=== PATIENT | male | born 1990 | race Caucasian/White ===

== ENCOUNTER 2021-05-09 18:32 | Emergency (ER) | payer OTHER ==
[2021-05-09 20:26] LABS: BASOPHIL 0.7 % (0-2); EOSINOPHIL 0.6 % (0-5); HCT 41.9 % (42.0-52.0); HGB 14.6 g/dl (13.2-18.0); LYMPHOCYTE 7.5 % (15-48); MCH 30.2 pg (25.0-31.0); MCHC 34.8 g/dL (32.0-36.0); MCV 86.7 fL (78.0-100.0); MPV 11.2 fL (6.0-9.5); NEUTROPHIL 85.8 % (41-80); NRBC 0; PLT 182 K/uL (150-400); RBC 4.83 M/uL (4.70-6.00); RDW 13.2 % (11.5-14.0); WBC 12.3 K/uL (4.0-10.5)
[2021-05-09 20:41] LABS: ALBUMIN 4.8 g/dL (3.4-5.0); BILIRUBIN - TOTAL 0.3 mg/dL (0.2-1.0); BUN/CREAT RATIO (CALC) 15.4 RATIO; CREATININE 0.91 mg/dL (0.67-1.17); GLOBULIN (CALCULATION) 3.1 g/dL; TOTAL PROTEIN 7.9 g/dL (6.4-8.2)
== END 2021-05-09 23:45 | disposition other institution (70) ==
LOC: FER 18:32
PROVIDERS: Internal Medicine
DX: S12.400A Unspecified displaced fracture of fifth cervical vertebra, initial encounter for closed fracture (principal); S12.500A Unspecified displaced fracture of sixth cervical vertebra, initial encounter for closed fracture; M25.512 Pain in left shoulder; J45.909 Unspecified asthma, uncomplicated; F17.210 Nicotine dependence, cigarettes, uncomplicated; V47.5XXA Car driver injured in collision with fixed or stationary object in traffic accident, initial encounter
CPT/HCPCS: 36415; 70450; 71260; 72125; 73020; 80053; 85025; J1170; Q9967